=== PATIENT | male | born 1965 ===

== ENCOUNTER 2024-11-20 14:09 | Emergency (ER) | payer OTHER, SELFPAY ==
[2024-11-20] VITALS (14 sets, daily range): BP systolic 140–195; BP diastolic 79–128; PULSE 73–104; RESP 12–22; TEMP 37.1; O2SAT 94–99; BMI 30.1
--- NOTE | 2024-11-20 14:18 | EKG_ITS ---
[address] [id number] [address] [address] Test Date: 2024-11-20 Pat Name: Everton Gimenez Department: Room: Gender: Male Cardiac Rn: : 1965 Requested By: Order Number: [id number] Reading MD: Anthony Thompson MD Measurements Intervals [place] Rate: 98 P: 50 MS: 154 QRS: 2 QRSD: 82 T: 55 QT: 344 QTc: 439 Interpretive Statements Normal sinus rhythm Septal infarct , age undetermined Electronically Signed On 11-21-2024 7:38:47 PDT by Anthony Thompson MD
--- NOTE | 2024-11-20 14:22 | DI.CT.S_ITS ---
PROCEDURE: CT ANGIO CHEST PE PROTOCOL INDICATIONS: Swollen left leg, acute dyspnea, tachycardia, chest pain TECHNIQUE: After the administration of intravenous contrast, 2 mm thick sections acquired from the pulmonary apices to the posterior costophrenic angles. 3-dimensional maximum intensity projection (MIP) coronal and sagittal reformats were then acquired through the thorax. For radiation dose reduction, the following was used: automated exposure control, adjustment of mA and/or kV according to patient size. COMPARISON: None. FINDINGS: Image quality: Diagnostic. Pulmonary arteries: Pulmonary arteries are normal in size, and demonstrate no intraluminal filling defects to suggest central pulmonary embolism. Lower Neck: No enlarged lymph nodes. Thyroid: No thyroid nodules which require sonographic follow up, per consensus guidelines. Axillae: No enlarged lymph nodes. Chest Wall: Unremarkable. Bones: Unremarkable. Lungs and Pleura: No pneumothorax or pleural effusions. No consolidation or suspicious nodules. Heart: Heart size is normal. No pericardial effusion. Thoracic Vessels: No aortic aneurysm. Mediastinum and Mela: No enlarged lymph nodes. Esophagus: No wall thickening. No hiatal hernia. Upper Abdomen: Visualized upper abdomen solid organs and bowel loops appear normal. IMPRESSION: No pulmonary embolus. No acute cardiopulmonary process. Dictated by: Ronny Lazar M.D. on 11/20/2024 at 15:26 Approved by: Ronny Lazar M.D. on 11/20/2024 at 15:27
[2024-11-20 14:38] LABS: Add Manual Diff / Slide Review NO; Hematocrit 46.4 % (41-53); Hemoglobin 16.2 g/dL (13.5-17.5); Lymphocytes Absolute Auto 2900 /uL (1100-4500); Mean Corpuscular HGB Conc 35.0 % (30-36); Mean Corpuscular Hemoglobin 32.7 PG (26-34); Mean Corpuscular Volume 93.4 fL (80-100); Platelet Count 255 X10^3/uL (150-400)
[2024-11-20 14:55] LABS: Lactate (Lactic Acid) 1.0 mmol/L (0.7-2.1)
[2024-11-20 14:57] LABS: Alanine Aminotransferase 101 IU/L (<50); Albumin 4.4 g/dL (3.5-5.0); Albumin Globulin Ratio 1.3 (1.0-2.8); Alkaline Phosphatase 130 U/L (38-126); Blood Urea Nitrogen 17 mg/dL (9-20); Calcium 10.0 mg/dL (8.4-10.2); Carbon Dioxide 25 mmol/L (22-32); Chloride 105 mmol/L (98-107); Estimated Glomerular Filt Rate > 60 mL/min (>60); Ethanol (ETOH) < 10 mg/dL (<10); Globulin 3.4 g/dL (1.7-4.1); Glucose 102 mg/dL (70-99); HEMOLYSIS < 15 (0-50); Lipase 133 U/L (23-300); Magnesium 2.0 mg/dL (1.6-2.3); Potassium 4.3 mmol/L (3.4-5.1); Sodium 138 mmol/L (137-145); Total Protein 7.8 g/dL (6.3-8.2)
[2024-11-20] MEDS: ONDANSETRON 4 MG/2 ML INJ IV (15:00)
[2024-11-20 15:08] LABS: NT-proBNP (BNP-Adult 18+) 74 pg/mL (<125); Troponin I < 0.012 ng/mL (0.01-0.034)
--- NOTE | 2024-11-20 17:22 | ED.CHESTPAIN ---
HPI - Chest Pain General Chief Complaint: Chest Pain Stated Complaint: Having chest pain , left foot pain Time Seen by Provider: 11/20/24 14:12 Source: patient Mode of arrival: Ambulatory Limitations: no limitations History of Present Illness HPI narrative: 59-year-old gentleman who rarely sees physicians not taking any prescription medications comes in complaining that his left foot is reddened swollen, in fact his entire left leg is swollen, chest pain and dyspnea. He notes that he had a 5 year period of sobriety from his alcohol use disorder and recently has had social issues arise and has relapsed. No fevers, chills, vomiting. Chest pain he describes as sharp and pinching. Related Data Previous Rx's ?Medication ?Instructions ?Recorded acyclovir 800 mg tablet 800 mg PO 5XD #50 tabs 02/16/22 chlordiazepoxide HCl 25 mg capsule 25 mg PO TID PRN alcohol 11/20/24 withdrawal #10 caps doxycycline hyclate 100 mg capsule 100 mg PO BID #20 caps 11/20/24 meloxicam 15 mg tablet 15 mg PO DAILY #20 tabs 11/20/24 Allergies Allergy/AdvReac Type Severity Reaction Status Date / Time No Known Drug Allergies Allergy Verified 11/20/24 14:18 Review of Systems Review of Systems Narrative: Pertinent positive and negative findings as per HPI Patient History Medical History (Updated 11/20/24 @ 19:30 by Kinza Li MD) Alcohol use disorder Smoking Status: Current every day smoker Exam Initial Vital Signs Initial Vital Signs: Vital Signs Pulse Oximetry 94 11/20/24 14:14 General: Healthy appearing, in pain secondary to his left foot. Able to give a complete and coherent history. Well-nourished well-developed HEENT: Moist mucous membranes, normal sclera with reactive pupils, Respiratory: Lungs are clear to auscultation, no wheezing no rales no rhonchi. Full and symmetrical air movement Cardiac: Tachycardic without murmurs Abdomen: Soft, nontender, no rebound or guarding, no hepatosplenomegaly, no flank pain Skin: Warm and dry, no rashes Neurologic: Grossly neurologically intact with no obvious asymmetries or abnormalities, is not hyperreflexic Extremities: Erythema over the dorsum of the left foot quite sensitive to touch. Some minor swelling associated with the left foot. Toes are neurovascularly intact. There was no obvious skin breakdown to explain source of infection Psych: Cooperative, appropriate insight and affect Course Orders Ordered: ED Orders 11/20/24 14:18 EKG-12 Lead Routine 11/20/24 14:22 CT angio chest PE protocol Stat Complete Blood Count AUTO DIFF Stat Comprehensive Metabolic Panel Stat Ethanol (ETOH) Stat Lactate (Lactic Acid) Stat Lipase Stat Magnesium Stat NT-proBNP (BNP-Adult 18+) Stat Troponin I Stat Urinalysis and Microscopic Stat 11/20/24 14:40 Blood Culture Stat 11/20/24 17:29 US periph venous low extrem lt Stat 11/20/24 17:43 Trop I [Troponin I] Stat Uric Acid Stat Hydromorphone HCl (Hydromorphone Hcl 0.5 Mg/0.5 Ml Syringe) 0.5 mg IV Q15MIN PRN PRN Reason: Pain, Last Admin: 11/20/24 15:38 Dose: 0.5 mg Documented By: Admin: 11/20/24 15:01 Dose: 0.5 mg Documented By: MAYA Discontinued Medications Chlordiazepoxide HCl (Chlordiazepoxide 25 Mg Capsule) 25 mg PO NOW ONE Stop: 11/20/24 18:57 Last Admin: 11/20/24 19:28 Dose: 25 mg Chlordiazepoxide HCl (Chlordiazepoxide 25 Mg Capsule) 25 mg PO NOW ONE Stop: 11/20/24 19:06 Doxycycline Hyclate (Doxycycline Hyclate 100 Mg Tablet) 100 mg PO NOW ONE Stop: 11/20/24 18:58 Last Admin: 11/20/24 19:27 Dose: 100 mg Ceftriaxone Sodium 2,000 mg/ (Sodium Chloride) 100 mls @ 200 mls/hr IV NOW ONE Stop: 11/20/24 17:31 Last Infusion: 11/20/24 18:32 Dose: Infused Ketorolac Tromethamine (Ketorolac 30 Mg/Ml Vial) 15 mg IV NOW ONE Stop: 11/20/24 17:30 Last Admin: 11/20/24 17:46 Dose: 15 mg Lorazepam (Lorazepam 0.5 Mg Tablet) 1 mg PO NOW ONE Stop: 11/20/24 17:30 Last Admin: 11/20/24 17:46 Dose: 1 mg Ondansetron HCl (Ondansetron 4 Mg/2 Ml Inj) 4 mg IV NOW ONE Stop: 11/20/24 14:49 Last Admin: 11/20/24 15:00 Dose: 4 mg Documented By: MAYA Oxycodone/Acetaminophen (Oxycodone/Acetaminophen 5/325 Tablet) 1 tab PO NOW ONE Stop: 11/20/24 17:30 Last Admin: 11/20/24 17:46 Dose: 1 tab Vital Signs Vital signs: Vital Signs - 8 hr 11/20/24 14:14 11/20/24 14:15 11/20/24 14:15 Temperature Pulse Rate 101 H Respiratory Rate Blood Pressure 195/128 H Pulse Oximetry 94 96 Oxygen Delivery Method 11/20/24 14:17 11/20/24 14:30 11/20/24 15:00 Temperature 98.7 F Pulse Rate 104 H 89 87 Respiratory Rate 22 12 15 Blood Pressure 195/128 H Pulse Oximetry 98 97 98 Oxygen Delivery Method Room Air 11/20/24 15:30 11/20/24 15:36 11/20/24 15:36 Temperature Pulse Rate 81 82 Respiratory Rate 18 13 Blood Pressure 140/85 Pulse Oximetry 95 97 Oxygen Delivery Method 11/20/24 16:00 11/20/24 16:00 11/20/24 16:30 Temperature Pulse Rate 79 73 Respiratory Rate 22 18 Blood Pressure 142/79 H Pulse Oximetry 97 Oxygen Delivery Method 11/20/24 16:30 11/20/24 17:00 11/20/24 17:00 Temperature Pulse Rate 75 Respiratory Rate 21 Blood Pressure 147/81 H 141/79 H Pulse Oximetry 98 Oxygen Delivery Method 11/20/24 17:30 11/20/24 17:30 11/20/24 18:00 Temperature Pulse Rate 79 85 Respiratory Rate 16 21 Blood Pressure 182/103 H Pulse Oximetry 98 96 Oxygen Delivery Method 11/20/24 18:00 11/20/24 18:30 11/20/24 18:30 Temperature Pulse Rate 81 Respiratory Rate 17 Blood Pressure 183/88 H 167/125 H Pulse Oximetry 99 Oxygen Delivery Method 11/20/24 19:30 11/20/24 19:30 Temperature Pulse Rate 82 Respiratory Rate 22 Blood Pressure 159/94 H Pulse Oximetry 96 Oxygen Delivery Method MDM - Chest Pain Lab Data 11/20/24 14:22 11/20/24 14:22 Labs: Lab Results 11/20/24 11/20/24 11/20/24 Range/Units 14:22 17:24 17:43 WBC 13.5 H (4.5-11.0) X10^3/uL RBC 4.97 (4.5-5.9) X10^6/uL Hgb 16.2 (13.5-17.5) g/dL Hct 46.4 (41-53) % MCV 93.4 (80-100) fL MCH 32.7 (26-34) PG MCHC 35.0 (30-36) % RDW 14.0 (11.6-14.8) % Plt Count 255 (150-400) X10^3/uL Neut % (Auto) 67.5 (50-75) % Lymph % (Auto) 21.3 L (25-40) % [place] % (Auto) 10.1 (3-14) % Eos % (Auto) 0.5 L (2-4) % Baso % (Auto) 0.6 (0-2) % Neut # (Auto) 9100 H (2764-6235) /uL Lymph # (Auto) 2900 (0923-7455) /uL [place] # (Auto) 1400 H (0-900) /uL Eos # (Auto) 100 (0-450) /uL Baso # (Auto) 100 (0-100) /uL Sodium 138 (137-145) mmol/L Potassium 4.3 (3.4-5.1) mmol/L Chloride 105 (98-107) mmol/L Carbon Dioxide 25 (22-32) mmol/L BUN 17 (9-20) mg/dL Creatinine 0.75 (0.66-1.25) mg/dL Estimated GFR > 60 (>60) mL/min BUN/Creatinine Ratio 22.7 H (6-22) Glucose 102 H (70-99) mg/dL Lactate 1.0 (0.7-2.1) mmol/L Uric Acid 7.3 (3.5-8.5) mg/dL Calcium 10.0 (8.4-10.2) mg/dL Magnesium 2.0 (1.6-2.3) mg/dL Total Bilirubin 0.6 (0.2-1.3) mg/dL AST 100 H (17-59) IU/L ALT 101 H (<50) IU/L Alkaline Phosphatase 130 H (38-126) U/L Troponin I < 0.012 < 0.012 (0.01-0.034) ng/mL NT-Pro-B Natriuret Pep 74 (<125) pg/mL Total Protein 7.8 (6.3-8.2) g/dL Albumin 4.4 (3.5-5.0) g/dL Globulin 3.4 (1.7-4.1) g/dL Albumin/Globulin Ratio 1.3 (1.0-2.8) Lipase 133 (23-300) U/L Urine Color Yellow Urine Appearance Clear Urine pH 5.5 (4.5-8.0) Ur Specific [place] 1.015 (1.000-1.035) Urine Protein Negative (Negative) Urine Glucose (UA) Negative (Negative) g/dL Urine Ketones Trace H (NEGATIVE) Urine Occult Blood Negative (Negative) Urine Nitrate Negative (Negative) Urine Bilirubin Negative (NEGATIVE) Urine Urobilinogen 1.0 (0.2) E.U./dL Ur Leukocyte Esterase Negative (NEGATIVE) Urine RBC None seen (0-5/HPF) Urine WBC None seen (0-5/HPF) Ur Squamous Epith Cells 0-1 /hpf (0-5/HPF) Urine Bacteria None seen (None) Ur Culture Indicated? Cult not indicated Vol Urine Centrifuged 10ml (spun) Ethyl Alcohol < 10 (<10) mg/dL MDM Narrative Medical decision making narrative: CC: Chest pain, return to alcohol use briefly, left foot pain Complicating co-morbidities: Has not seen a doctor for an extended period of time, has not appointment in about 2 weeks, takes no medication, social difficulties recently led to a brief relapse in his alcohol use disorder, Data collected from: patient Differential considered: Cellulitis, DVT, PE, acute coronary syndrome, alcohol withdrawal, hypertensive crisis, sepsis Exam documented above, pertinent findings include: Heart and lung exams are benign. Minimal neurologic signs of acute alcohol withdrawal, left lower extremity redness over the dorsum of the foot with swelling Lab Test results independently reviewed as above. Pertinent findings: CBC shows a white count at 13.5 without significant left shift Chemistries show appropriate renal function, Uric acid is not elevated AST ALT and alk-phos are all minimally elevated consistent with his recent return to use of alcohol 1st and 2nd troponin are unremarkable BNP is not elevated Lipase is within normal limit Urine does not suggest acute UTI Alcohol level is undetectable Independently reviewed EKG: Sinus tach at 98, no acute ischemic changes Imaging studies independently reviewed: CT angiogram of the chest shows no pulmonary embolism, dissection, pulmonary pathology Vascular ultrasound of the left lower extremity does not show DVT Treatments: Zofran, oral Ativan, 1 Percocet for pain control, Toradol IV for pain control, 2 g of ceftriaxone for cellulitis, initial dose of doxycycline for discharge home, 25 mg of chlordiazepoxide prior to discharge and 25 mg given to take after midnight tonight for acute alcohol withdrawal Discussion: 59-year-old gentleman with chest pain, alcohol withdrawal symptoms and left lower extremity pain. He has an acute left lower extremity cellulitis without DVT, gout or underlying deeper infection. Initial dose of ceftriaxone given in the ER, he will be discharged home with a prescription for doxycycline. Regarding his chest pain with the left lower extremity swollen his tachycardia and concern was for PE CT scan pull that out. No evidence of acute coronary syndrome or pulmonary infection. Possibility of hypertensive crisis is entertained however when his alcohol withdrawal symptoms are appropriately treated his blood pressure comes down nicely Acute alcohol withdrawal. Eyes given oral Ativan in the emergency department, another 25 mg of Librium and sent home with similar with prescription written for him to use over the next few days Significantly elevated blood pressure, asked that once he has passed the infection, the pain and back to his alcohol sobriety to keep track of his blood pressures on a regular basis to discuss with his new primary care physician and decide if he actually needs to be treated for hypertension No indication for hospitalization he is safe for discharge Discharge Plan Departure Patient Disposition: Home Clinical Impression: Atypical chest pain, Cellulitis of left leg, Elevated blood pressure reading Withdrawal symptoms, alcohol Qualifiers: Complication of substance-induced condition: uncomplicated Qualified Code(s): F10.930 - Alcohol use, unspecified with withdrawal, uncomplicated Instructions: DI for Cellulitis -- Adult, DI for Atypical Chest Pain Activity Restrictions/Additional Instructions: Thank you for coming in today. You have a cellulitis, superficial bacterial infection in your left foot that is causing your severe pain. This is not sepsis, not an abscess and no evidence of blood clot in your leg. You do need to complete 10 days of doxycycline to help this resolve completely. I have given you a prescription for meloxicam to help with the leg pain. This is similar to ibuprofen and Aleve. You should not take this medication with either ibuprofen or Aleve For your alcohol withdrawal symptoms, congratulations on not having another drink, I have given you a prescription for Librium, this can help with the shaky feeling and cravings and withdrawal symptoms as you continue into your sobriety Regarding your chest pain, there was no sign of infection, blood clots in your lungs heart attack or acute coronary type symptoms. I do not know if this is related to musculoskeletal issues, stomach issues, irritation from your recent extra alcohol use. This does not appear to be life-threatening. Your blood pressure was significantly elevated today. It could simply be because of pain from your cellulitis and the alcohol withdrawal symptoms. Once you are feeling better from both of those, you need to be taking blood pressure readings every other day or so to know what your average blood pressures are. Please take these readings in with you when you see your new primary care doctor to decide if you do need medication management for your elevated blood pressure readings If you find that you are getting worse or develop any new symptoms, please feel free to return to the emergency department for further evaluation. Prescriptions: New doxycycline hyclate 100 mg capsule 100 mg PO BID Qty: 20 0RF chlordiazepoxide HCl 25 mg capsule 25 mg PO TID PRN (Reason: alcohol withdrawal) Qty: 10 0RF meloxicam 15 mg tablet 15 mg PO DAILY Qty: 20 0RF No Action acyclovir 800 mg tablet 800 mg PO 5XD Qty: 50 0RF Rx Instructions: space evenly during waking hours Referrals: Kim Navarro PA-C [Primary Care Provider, Medical] Stand Alone Forms: Patient Portal/API
--- NOTE | 2024-11-20 17:29 | DI.US.S_ITS ---
PROCEDURE: US PERIPH VENOUS LOW EXTREM LT INDICATIONS: asymetric edema TECHNIQUE: Real-time imaging, as well as color and pulse Doppler interrogation, were performed of the lower extremity deep veins from the inguinal ligament to the popliteal fossa, with documentation of the visualized calf veins. COMPARISON: None. FINDINGS: The common femoral, femoral, popliteal, and the visualized calf veins are normally compressible, and free of intraluminal thrombus. Color and pulse Doppler demonstrate normal phasic intraluminal flow. There is normal augmentation response to distal compression maneuver. IMPRESSION: Negative left lower extremity duplex venous ultrasound for DVT. Dictated by: Regino Rubio M.D. on 11/20/2024 at 18:40 Approved by: Regino Rubio M.D. on 11/20/2024 at 18:40
[2024-11-20] MEDS: cefTRIAXone 2,000 MG in SODIUM CHLORIDE 0.9% 100 ML 200 MG IV (17:46)
[2024-11-20] MEDS: OXYCODONE/ACETAMINOPHEN 5/325 TABLET 1 TAB PO (17:46)
[2024-11-20] MEDS: KETOROLAC 30 MG/ML VIAL 15 MG IV (17:46)
[2024-11-20 18:02] LABS: Appearance Urine UA CLEAR; Bilirubin Urine UA NEGATIVE (NEGATIVE); Color Urine UA YELLOW; Glucose Urine UA NEGATIVE (Negative); Ketones Urine UA TRACE (NEGATIVE); Leukocyte Esterase Urine UA NEGATIVE (NEGATIVE); Nitrite Urine UA NEGATIVE (Negative); Occult Blood Urine UA NEGATIVE (Negative); Protein Urine UA NEGATIVE (Negative); Specific Gravity Urine UA 1.015 (1.000-1.035); Urobilinogen Urine UA 1.0 E.U./dL (0.2); pH Urine UA 5.5 (4.5-8.0)
[2024-11-20 18:08] LABS: Uric Acid 7.3 mg/dL (3.5-8.5)
[2024-11-20 18:11] LABS: Culture Indicated Urine Cult Not Indicated
[2024-11-20 18:21] LABS: Troponin I < 0.012 ng/mL (0.01-0.034)
--- NOTE | 2024-11-20 19:18 | PC.NURSE ---
This RN received report and assumed care for patient . Patient resting on stretcher, denies any needs at this moment.
[2024-11-20] MEDS: DOXYCYCLINE HYCLATE 100 MG TABLET PO (19:27)
== END 2024-11-20 20:04 | disposition home or self-care (01) ==
PROVIDERS: Emergency Provider Emergency Medicine; PCP Physician Assistant Medical
DX: R07.89 Other chest pain (principal); L03.116 Cellulitis of left lower limb; R03.0 Elevated blood-pressure reading, without diagnosis of hypertension; F10.930 Alcohol use, unspecified with withdrawal, uncomplicated; R06.00 Dyspnea, unspecified
CPT/HCPCS: 36415; 71275; 80053; 80320; 81001; 83605; 83690; 83735; 83880; 84484; 84550; 85025; 87040; 93005; 93010; 93971; 96365; 96375; 99284; J0696; J1171; J1885; J2405; Q9967